=== PATIENT | female | born 1950 | race Caucasian/White ===

== ENCOUNTER → 2020-08-14 | Outpatient (CLI) | payer MEDICARE ==
[~2020-08-14] MED LIST: FENTANYL CITRATE/PF 100MCG/2 ML INJ ONE; LIDOCAINE HCL 1% LOCAL INJ 20 ML VIAL ONE; MIDAZOLAM HCL 2 MG/2 ML VIAL ONE
[2020-08-14 07:59] LABS: HEMOGLOBIN 13.1 g/dL (12.0-16.0)
[2020-08-14 08:20] LABS: INR 0.92
[2020-08-14 08:50] LABS: PARTIAL THROMBOPLASTIN TIME 32.3 seconds (23.8-35.5)
== END ==
LOC: CT 07:30
PROVIDERS: ATTEND Internal Medicine Hematology & Oncology
DX: C82.90 Follicular lymphoma, unspecified, unspecified site (principal); R53.0 Neoplastic (malignant) related fatigue; I10 Essential (primary) hypertension; E78.5 Hyperlipidemia, unspecified
CPT/HCPCS: 36415; 77012; 85014; 85049; 85610; 85730; J2001; J2250; J3010; U0002; 99152; 99153